=== PATIENT | female | born 1995 | race Caucasian/White ===

== ENCOUNTER 2022-07-20 06:25 | Inpatient (IN) | payer OTHER ==
[2022-07-20] MEDS ORDERED: PITOCIN 30 UNITS/ LR 500 ML 30 UNITS/500 ML PLAST..BAG IV SCH (18:30)
[2022-07-20 18:40] LABS: Amphetamine,Urine NEGATIVE (NEGATIVE); Barbiturate,Urine NEGATIVE (NEGATIVE); Benzodiazepine,Urine NEGATIVE (NEGATIVE); Cocaine,Urine NEGATIVE (NEGATIVE); Methadone,Urine NEGATIVE (NEGATIVE); Opiate,Urine NEGATIVE (NEGATIVE); PCP,Urine NEGATIVE (NEGATIVE); THC,Urine NEGATIVE (NEGATIVE)
[2022-07-20] MEDS ORDERED: XYLOCAINE 1% HCL 20 ML MDV IJ PRN (19:52)
[2022-07-20] MEDS ORDERED: Zofran 4 MG/2 ML VIAL IV PRN (19:52)
[2022-07-20 20:23] LABS: Absolute Neutrophil Ct (ANC) 8.07 x10^3/uL (1.4-6.9); Basophil (Absolute #) 0.02 x10^3/uL (0-0.4); Eosinophil % 0.5 % (0.00-5.0); Eosinophil (Absolute #) 0.05 x10^3/uL (0-0.5); Hematocrit 37.7 % (35-47); Hemoglobin 12.1 g/dL (12.0-16.0); Lymphocyte (Absolute #) 1.87 x10^3/uL (1.0-4.6); Lymphocytes % 17.3 % (24.0-44.0); Mean Cell Volume 85.5 fL (78-100); Mean Corpuscular Hemoglobin 27.4 pg (26-32); Mean Corpuscular Hgb Concent. 32.1 g/dL (32-36); Mean Platelet Volume 8.6 fL (7.5-11.0); Monocyte (Absolute #) 0.75 x10^3/uL (0.0-1.3); Monocytes % 6.9 % (0.0-12.0); Neutrophil % 74.7 % (36.0-66.0); Platelet Count 313 x10^3/uL (150-450); Red Blood Count 4.41 x10^6/uL (4.1-5.4); Red Cell Distribution Width 14.3 % (11.5-14.0); White Blood Count 10.8 x10^3/uL (4.0-10.5)
[2022-07-20 22:11] LABS: ABO TYPING A; Antibody Screen NEGATIVE (NEGATIVE); RH TYPING POSITIVE
[2022-07-20 22:20] LABS: Appearance CLEAR (CLEAR); Bilirubin NEGATIVE (NEGATIVE); Dipstick done @ ? MAIN LAB; Glucose NEGATIVE (NEGATIVE); Ketones NEGATIVE (NEGATIVE); Nitrite NEGATIVE (NEGATIVE); Ph 6.5 (5-6); Protein,Urine Dip NEGATIVE (Negative); RBC NEGATIVE Ery/ul (0-5); Specific Gravity 1.015 (1.005-1.025); Urobilinogen 0.2 mg/dL (0-1)
[2022-07-20 22:24] LABS: Bacteria RARE /HPF (NEGATIVE); Epithelial Cells RARE /HPF (FEW); Mucus SLIGHT /HPF (NEGATIVE); Urine Cultured Indicated? YES
[2022-07-21 01:19] LABS: INR 0.97 (0.8-3.0); PROTIME 10.3 SECONDS (9.4-12.5); PTT 26.5 SECONDS (25.1-36.5)
[2022-07-21] MEDS ORDERED: OMNIPEN 2 GM*** 2 G in Sodium Chloride 100ML MINI-BAG PLUS 100 ML IV ONE (04:37)
[2022-07-21] MEDS ORDERED: STADOL 2 MG IV PRN (04:40)
[2022-07-21] MEDS ORDERED: OMNIPEN 2 GM ONE (04:44)
[2022-07-21] MEDS ORDERED: Sodium Chloride 100ML MINI-BAG PLUS 100 ML IV ONE (04:45)
[2022-07-21] MEDS: Lactated Ringers 1,000 ML IV SCH ×2 (04:50→12:16)
[2022-07-21] MEDS ORDERED: Ephedrine Sulfate 50 MG/ML IV PRN (05:23)
[2022-07-21] MEDS ORDERED: FENTANYL 2 MCG-BUPIV 0.125%-NS 250 ML Epidur 250 ML EPIDURAL SCH (05:30)
[2022-07-21] MEDS ORDERED: CEFAZOLIN 2 GM-D5W BAG** 2 GM/50 ML ML IV SCH ×2 (06:00→12:30)
[2022-07-21] MEDS ORDERED: SOD CITRATE-CITRIC ACID SOLN PO SCH ×2 (06:00→12:30)
[2022-07-21] MEDS ORDERED: Pepcid 20 MG VIAL IV SCH ×2 (06:00→12:30)
[2022-07-21] MEDS ORDERED: Lactated Ringers 1,000 ML IV ONE ×3 (06:00→16:39)
[2022-07-21] MEDS ORDERED: Reglan 10 MG/2 ML IV SCH ×2 (06:00→12:30)
[2022-07-21] MEDS ORDERED: BRETHINE 1 MG/ML SQ PRN (08:30)
[2022-07-21] MEDS ORDERED: PITOCIN 30 UNITS/ LR 500 ML 30 UNITS/500 ML PLAST..BAG IV SCH (08:30)
[2022-07-21] MEDS: OMNIPEN 1 GM*** 1 GM in Sodium Chloride 100ML MINI-BAG PLUS 100 ML IV SCH ×2 (08:37→12:54)
[2022-07-21] MEDS ORDERED: Dextrose 5%-Lr IV Solution 1000 ML 1,000 ML IV SCH ×2 (09:00→14:00)
[2022-07-21] MEDS ORDERED: Ambien 10 MG PO PRN (13:46)
[2022-07-21] MEDS ORDERED: TUCKS TP PRN (13:46)
[2022-07-21] MEDS ORDERED: Dermoplast Spray TP PRN (13:46)
[2022-07-21] MEDS ORDERED: HOLD NARCOTIC ANALGESICS AND SEDATIVES X24 HR MC PRN (13:46)
[2022-07-21] MEDS ORDERED: Nubain 10 MG/ML IV PRN (13:46)
[2022-07-21] MEDS ORDERED: Narcan 0.4 MG/ML IV PRN (13:46)
[2022-07-21] MEDS ORDERED: Dulcolax 10 MG SUPP PR PRN (13:46)
[2022-07-21] MEDS ORDERED: BENADRYL 50 MG/ML IV PRN (13:46)
[2022-07-21] MEDS ORDERED: PERCOCET TABLET 5/325MG PO PRN (13:46)
[2022-07-21] MEDS ORDERED: CORTISONE 1% CREAM TP PRN (13:46)
[2022-07-21] MEDS ORDERED: MORPHINE SULFATE 2 MG INJ IV PRN (13:46)
[2022-07-21] MEDS ORDERED: CLARITIN 10 MG PO PRN (13:46)
[2022-07-21] MEDS ORDERED: Mylicon 80MG PO PRN (13:46)
[2022-07-21] MEDS ORDERED: Anucort-HC SUPPOSITORY PR PRN (13:46)
[2022-07-21] MEDS ORDERED: Sodium Chloride 0.9% 10 ML FLUSH Syringe IJ PRN (13:46)
[2022-07-21] MEDS ORDERED: LANSINOH 40 GM TOP PRN (13:46)
[2022-07-21] MEDS ORDERED: Pitocin 10 UNITS/ML ONE ×2 (15:05→16:39)
[2022-07-21] MEDS ORDERED: SUBLIMAZE 100 MCG/2 ML ONE (15:06)
[2022-07-21] MEDS ORDERED: XYLOCAINE 2%/Epi 1:200000 20ML VIAL MPF ONE (15:06)
[2022-07-21] MEDS ORDERED: Sensorcaine 0.25% 10 ML ONE (15:10)
[2022-07-21] MEDS ORDERED: EXPAREL 133 MG/10 ML VIAL IJ ONE (15:12)
[2022-07-21] MEDS ORDERED: OFIRMEV 100 ML IV ONE (15:17)
[2022-07-21] MEDS ORDERED: KEFZOL 1 GM ONE (15:30)
[2022-07-21] MEDS ORDERED: Astramorph-Pf 5 MG/10 ML ONE (15:49)
[2022-07-21] MEDS ORDERED: TRANEXAMIC ACID 1000 MG/10 ML 1,000 MG in Sodium Chloride 0.9% 100 ML IV ONE (16:00)
[2022-07-21] MEDS ORDERED: Zofran 4 MG/2 ML VIAL ONE (16:05)
[2022-07-21] MEDS ORDERED: PHENYLEPHRINE HCL ONE (16:06)
[2022-07-21] MEDS ORDERED: Methergine ONE (16:51)
[2022-07-21] MEDS ORDERED: M-M-R II Vaccine With Diluent SQ ONE (17:00)
[2022-07-21] MEDS ORDERED: Adacel Vial IM ONE (17:00)
[2022-07-21] MEDS: Docusate Sodium 100 MG PO SCH (21:37)
[2022-07-21] MEDS: KEFZOL 1 GM/50 ML PREMIX** 1 GM/50 ML IVPB IV SCH (23:59)
[2022-07-21] MEDS: CEFAZOLIN 2 GM-D5W BAG** 2 GM/50 ML ML IV SCH (23:59)
[2022-07-22 05:21] LABS: Absolute Neutrophil Ct (ANC) 8.62 x10^3/uL (1.4-6.9); Basophil (Absolute #) 0.04 x10^3/uL (0-0.4); Eosinophil % 0.3 % (0.00-5.0); Eosinophil (Absolute #) 0.04 x10^3/uL (0-0.5); Hematocrit 30.3 % (35-47); Hemoglobin 9.6 g/dL (12.0-16.0); Lymphocyte (Absolute #) 2.13 x10^3/uL (1.0-4.6); Lymphocytes % 17.7 % (24.0-44.0); Mean Cell Volume 85.8 fL (78-100); Mean Corpuscular Hemoglobin 27.2 pg (26-32); Mean Corpuscular Hgb Concent. 31.7 g/dL (32-36); Monocyte (Absolute #) 1.13 x10^3/uL (0.0-1.3); Monocytes % 9.4 % (0.0-12.0); Neutrophil % 71.9 % (36.0-66.0); Platelet Count 280 x10^3/uL (150-450); Red Blood Count 3.53 x10^6/uL (4.1-5.4); Red Cell Distribution Width 14.6 % (11.5-14.0)
--- NOTE | 2022-07-22 08:03 | PCM.NOTE ---
Date and Time: 07/22/22800 Subjective Assessment: pod 1 pt resting in bed and doing well. ambulating and tolerating diet. vss afebrile abd; soft dressing intact uterus; firm lochia; mild ap sp csection pod 1 dc home tomorrow should fu in office in 1 wk OBJECTIVE DATA Vital Signs: Vital Signs - 24 hr Temp Pulse Resp BP BP Pulse Ox 07/22/22 06:59 96 07/22/22 06:00 96 07/22/22 05:00 98 07/22/22 04:00 97 07/22/22 03:00 96 07/22/22 02:00 98 07/22/22 01:00 95 07/22/22 00:00 97 07/21/22 23:00 96 07/21/22 22:00 97 07/21/22 20:00 99 07/21/22 19:00 89 18 126/56 99 07/21/22 18:00 96 H 18 138/69 96 07/21/22 17:45 86 18 114/56 97 07/21/22 17:30 89 18 116/56 97 07/21/22 17:15 89 18 132/61 94 L 07/21/22 17:00 98.3 F 88 18 133/64 97 07/21/22 15:00 97 H 18 115/56 99 07/21/22 14:30 87 18 137/66 98 07/21/22 14:16 99.3 F 94 H 18 140/64 96 07/21/22 14:00 99.3 F 94 H 18 140/64 96 07/21/22 13:45 93 H 18 142/65 96 07/21/22 13:30 95 H 18 133/79 98 07/21/22 13:15 76 18 134/66 98 07/21/22 13:00 79 18 129/64 99 07/21/22 12:45 86 18 136/64 07/21/22 12:30 92 H 18 123/56 07/21/22 12:15 78 18 118/58 07/21/22 12:00 98 H 18 116/57 100 07/21/22 11:45 96 H 18 124/58 99 07/21/22 11:30 98 H 18 115/64 07/21/22 11:15 98.9 F 93 H 18 98 07/21/22 11:00 81 18 117/65 97 07/21/22 10:45 76 18 110/59 96 07/21/22 10:30 93 H 18 99 07/21/22 10:15 89 18 123/62 97 07/21/22 10:00 89 18 125/63 99 07/21/22 09:45 75 18 134/61 96 07/21/22 09:30 73 18 131/62 95 07/21/22 09:15 84 18 131/60 94 L 07/21/22 09:00 93 H 18 119/60 94 L 07/21/22 08:30 88 18 114/55 95 Pain Assessment - Last Documented Pain Intensity [Posterior] 0 Pain Intensity 0 Pain Scale Used 0-10 Pain Scale Intake and Output: Intake & Output 07/19/22 07/20/22 07/21/22 07/22/22 11:59 11:59 11:59 11:59 Intake Total 1315 1525 Output Total 20 1600 Balance 1295 -75 Weight 158.304 kg 158.304 kg Lab Results: Lab Results-Last 24 Hours 07/22/22 Range/Units 05:19 WBC 12.0 H (4.0-10.5) x10^3/uL RBC 3.53 L (4.1-5.4) x10^6/uL Hgb 9.6 L D (12.0-16.0) g/dL Hct 30.3 L (35-47) % MCV 85.8 (78-100) fL MCH 27.2 (26-32) pg MCHC 31.7 L (32-36) g/dL RDW 14.6 H (11.5-14.0) % Plt Count 280 (150-450) x10^3/uL MPV 9.0 (7.5-11.0) fL Gran % 71.9 H (36.0-66.0) % Immature Gran % (Auto) 0.4 (0.00-0.4) % Nucleat RBC Rel Count 0.0 (0.00-0.1) % Eos # (Auto) 0.04 (0-0.5) x10^3/uL Immature Gran # (Auto) 0.05 H (0.00-0.03) x10^3u/L Absolute Lymphs (auto) 2.13 (1.0-4.6) x10^3/uL Absolute Monos (auto) 1.13 (0.0-1.3) x10^3/uL Absolute Nucleated RBC 0.00 (0.00-0.01) x10^3u/L Lymphocytes % 17.7 L (24.0-44.0) % Monocytes % 9.4 (0.0-12.0) % Eosinophils % 0.3 (0.00-5.0) % Basophils % 0.3 (0.0-0.4) % Absolute Granulocytes 8.62 H (1.4-6.9) x10^3/uL Basophils # 0.04 (0-0.4) x10^3/uL Multi-Disciplinary Progress Notes: Multi-Disciplinary Progress Notes 07/21/22 17:24 Respiratory Note by Leidy Shaw rt in for a c section. rt assisted with cleaning and stimulating. pulse ox placed on baby. Initialized on 07/21/22 17:24 - END OF NOTE Assessment/Plan (1) Arrest of descent, delivered, current hospitalization Current Visit: Yes Status: Acute Code(s): O62.1 - SECONDARY UTERINE INERTIA (2) Arrest of dilation, delivered, current hospitalization Current Visit: Yes Status: Acute Code(s): O62.1 - SECONDARY UTERINE INERTIA (3) delivery delivered Current Visit: Yes Status: Acute Code(s): O82 - ENCOUNTER FOR DELIVERY WITHOUT INDICATION
--- NOTE | 2022-07-22 08:09 | PCM.DS ---
Discharge Summary Date of Admission: 07/21/22 06:25 Admitting Physician: DAVID PRESSLEY DO Consults: Consults on Case 07/21/22 00:26 Notify Anesthesia Provider ROUTINE Primary Care Provider: JENIFFER MCNULTY Allergies Allergies No Known Drug Allergies Allergy (Unverified 07/20/22 20:47) Hospital Summary - Hospital Course Hospital Course: pt admitted on jul 20 for induction via cytotec and was at 39 wks gestation with morbid obesity and gestational diabetes diet controlled. pt was noted being 3 cm on jul 21 in the am and did not progress for approximately 5 1/2 hrs with pitocin while having iupc in place. at that point it was decided to proceed with section. pt underwent procedure without complication and the next morning did very well with incision clean and dry. pt was able to ambulate and tolerate diet. stable hgb 9.7. pt advised to fu in office in 1 wk for dressing removal. all questions answered to her satisfaction. pt given norco for pain management. - Vitals & Intake/Output Vital Signs: Vital Signs Temperature 98.3 F 07/21/22 17:00 Pulse Rate 89 07/21/22 19:00 Respiratory Rate 18 07/21/22 19:00 Blood Pressure 126/56 07/21/22 19:00 O2 Sat by Pulse Oximetry 96 07/22/22 06:59 Intake & Output: Intake & Output 07/19/22 07/20/22 07/21/22 07/22/22 11:59 11:59 11:59 11:59 Intake Total 1315 1525 Output Total 20 1600 Balance 1295 -75 Weight 158.304 kg 158.304 kg - Lab Result Diagrams: 07/22/22 05:19 Lab Results-Last 24 Hrs: Lab Results-Last 24 Hours 07/22/22 Range/Units 05:19 WBC 12.0 H (4.0-10.5) x10^3/uL RBC 3.53 L (4.1-5.4) x10^6/uL Hgb 9.6 L D (12.0-16.0) g/dL Hct 30.3 L (35-47) % MCV 85.8 (78-100) fL MCH 27.2 (26-32) pg MCHC 31.7 L (32-36) g/dL RDW 14.6 H (11.5-14.0) % Plt Count 280 (150-450) x10^3/uL MPV 9.0 (7.5-11.0) fL Gran % 71.9 H (36.0-66.0) % Immature Gran % (Auto) 0.4 (0.00-0.4) % Nucleat RBC Rel Count 0.0 (0.00-0.1) % Eos # (Auto) 0.04 (0-0.5) x10^3/uL Immature Gran # (Auto) 0.05 H (0.00-0.03) x10^3u/L Absolute Lymphs (auto) 2.13 (1.0-4.6) x10^3/uL Absolute Monos (auto) 1.13 (0.0-1.3) x10^3/uL Absolute Nucleated RBC 0.00 (0.00-0.01) x10^3u/L Lymphocytes % 17.7 L (24.0-44.0) % Monocytes % 9.4 (0.0-12.0) % Eosinophils % 0.3 (0.00-5.0) % Basophils % 0.3 (0.0-0.4) % Absolute Granulocytes 8.62 H (1.4-6.9) x10^3/uL Basophils # 0.04 (0-0.4) x10^3/uL - Procedures and Test Procedures and Tests throughout Hospitalization: Therapy Orders & Screens 07/21/22 17:27 Standby ROUTINE Comment: Diagnosis: VAGINAL CYTOTEC INDUCTION Final Diagnosis/Problem List - Final Discharge Diagnosis/Problem (1) Arrest of descent, delivered, current hospitalization Current Visit: Yes Status: Acute Code(s): O62.1 - SECONDARY UTERINE INERTIA (2) Arrest of dilation, delivered, current hospitalization Current Visit: Yes Status: Acute Code(s): O62.1 - SECONDARY UTERINE INERTIA (3) delivery delivered Current Visit: Yes Status: Acute Code(s): O82 - ENCOUNTER FOR DELI VERY WITHOUT INDICATION - Discharge Disposition: Home, Self-Care Condition: Stable Prescriptions: New Hydrocodone/Acetaminophen [Hydrocodone-Acetamin 5-325 mg] 1 tab PO Q6HPRN PRN #20 tablet MDD 4 PRN Reason: Pain No Action Pnv No.95/Ferrous Fum/Folic AC [ Caplet] 1 each PO DAILY Aspirin 81 gm Chew [Baby Aspirin 81 mg Chew] 81 mg PO DAILY Follow up with: JENIFFER MCNULTY NP [Primary Care Provider] - DAVID PRESSLEY DO [ACTIVE STAFF] - 1 Week (should fu in 1 wk for dressing removal)
[2022-07-22] MEDS: TYLENOL EXTRA STRENGTH 500 MG PO PRN ×3 (08:23→17:23)
--- NOTE | 2022-07-22 08:46 | OP ---
SURGERY DATE/TIME: 07/21/2022 1517 PREOPERATIVE DIAGNOSIS: Intrauterine at 39 weeks gestation with history of gestational diabetes with current arrest of descent and dilatation. POSTOPERATIVE DIAGNOSIS: Intrauterine at 39 weeks gestation with history of gestational diabetes with current arrest of descent and dilatation with macrosomia. PROCEDURE: Primary section, low flap transverse uterine incision, Pfannenstiel skin incision. SURGEON: Germán Reyes D.O. INTERACTIVE DIGITAL MEDIA SPECIALIST: Antionette Beck and Yoselyn Davis, surgical technicians. ANESTHESIA: Epidural. ESTIMATED BLOOD LOSS: 600 cc. COMPLICATIONS: None. INDICATIONS: The risks, benefits, indications and alternatives of the procedure were reviewed with the patient prior to procedure. The patient understood the risk of infection, bleeding, bowel injury, bladder injury, ureteral injury, uterine perforation, pelvic infection and thromboembolic disorder associated with the surgery and desires to have this surgery as a possible means to alleviate her current medical condition. DESCRIPTION OF PROCEDURE AND FINDINGS: At this point the patient is taken to the operating room where her epidural anesthesia was found to be adequate. She was then prepared and draped in normal sterile fashion in the dorsal supine position with leftward tilt. A Pfannenstiel skin incision is made with a scalpel and carried through to the underlying layer of the fascia with a Bovie. The fascia was then incised in the midline and the incision extended laterally with Crews scissors. The superior aspect of the fascial incision was then grasped Leidy clamps elevated and the underlying rectus muscles dissected off bluntly. Attention is then turned to the inferior aspect of this incision which in similar fashion was grasped, tented up with Leidy clamps and the rectus muscles dissected off bluntly. The rectus muscles were then at the midline and the peritoneum identified, tented up and entered sharply with Metzenbaum scissors. The peritoneal incision was then extended superiorly and inferiorly with good visualization of the bladder. From this point an Sajan retractor was placed into the abdomen as a means to retract. At this point the vesicouterine peritoneum identified, grasped with pickups and entered sharply with Metzenbaum scissors. This incision was then extended laterally and a bladder flap created digitally. The bladder blade was then reinserted and the lower uterine segment incised in transverse fashion with a scalpel. The uterine incision was then extended laterally with bandage scissors. The bladder blade was then removed and the 's head was delivered atraumatically. The nose and mouth were suctioned with bulb suction and the cord clamped and cut. The was then handed off to the awaiting nurses. The placenta was then removed manually. The uterus exteriorized and cleared of all clots and debris. The uterine incision was repaired with 1-0 chromic in a running locked fashion. A second layer of the same suture was used to obtain excellent hemostasis. The uterus is then returned to the abdomen. The gutters were cleared of clots and the peritoneal muscles were closed with interrupted suture using 2-0 chromic suture. The fascia was re-approximated with 0 Vicryl in a running fashion. The subcutaneous layer was closed with 3-0 Vicryl suture and the skin was closed with absorbable ginger called INSORB. The patient tolerated the procedure well. Sponge, lap, needle and instrument counts were correct x2. The patient was then taken to the recovery room in stable condition. All instruments and laps were accounted for x2. The patient delivered a live baby girl at 1541 hours, weight of the baby was 9 pounds 7 ounces and 's were 8 at 1 minute and 9 at 5 minutes.
[2022-07-22] MEDS: KEFZOL 1 GM/50 ML PREMIX** 1 GM/50 ML IVPB IV SCH (09:42)
[2022-07-22] MEDS: CEFAZOLIN 2 GM-D5W BAG** 2 GM/50 ML ML IV SCH (09:42)
[2022-07-22] MEDS: Docusate Sodium 100 MG PO SCH ×2 (09:44→20:28)
[2022-07-22] MEDS: FERREX 150 PO SCH (09:45)
[2022-07-22] MEDS: ENOXAPARIN SODIUM SQ SCH (09:45)
[2022-07-22 12:08] LABS: HBsAg Screen Negative (Negative)
[2022-07-22] MEDS ORDERED: NORCO 5/325 MG PO PRN (13:46)
[2022-07-22] MEDS ORDERED: DEMEROL 50 MG IV PRN (13:46)
[2022-07-22] MEDS: MOTRIN 400 MG PO PRN ×2 (14:13→20:28)
[2022-07-23] MEDS: MOTRIN 400 MG PO PRN ×2 (05:39→14:47)
[2022-07-23] MEDS: TYLENOL EXTRA STRENGTH 500 MG PO PRN ×3 (08:05→20:48)
[2022-07-23] MEDS: ENOXAPARIN SODIUM SQ SCH (08:41)
[2022-07-23] MEDS: Docusate Sodium 100 MG PO SCH ×2 (08:41→22:28)
[2022-07-23] MEDS: FERREX 150 PO SCH (08:41)
[2022-07-24 02:31] VITALS: O2SAT 97
[2022-07-24 08:47] VITALS: BP 143/66; PULSE 82
== END 2022-07-24 08:45 | disposition home or self-care (01) | DRG 788 ==
LOC: OB 06:25 → OBSVTOIN 07-21 06:25
PROVIDERS: ADMIT Obstetrics & Gynecology; ATTEND Obstetrics & Gynecology
PROC: 10D00Z1 Extraction of Products of Conception, Low, Open Approach (ICD-10-PCS; principal; 2022-07-21)
DX: O62.1 Secondary uterine inertia (principal); O24.420 Gestational diabetes mellitus in childbirth, diet controlled; Z3A.39 39 weeks gestation of pregnancy; Z37.0 Single live birth; Z20.828 Contact with and (suspected) exposure to other viral communicable diseases
CPT/HCPCS: 36415; 59510; 62322; 64488; 76937; 76942; 80307; 81015; 85025; 85610; 85730; 86850; 86900; 86901; 87086; 87340; 90471; 90707; 90715; 94799; 96372; 99140; G0378; J0290; J0595; J0690; J1330; J1650; J2274; J2370; J2405; J2590; J3010; L0625; A9270-GY